=== PATIENT | male | born 1970 | race African-American/Black ===

== ENCOUNTER 2021-06-21 13:08 | Emergency (ER) | payer OTHER ==
[~2021-06-21] VITALS: Ht 172.7 cm; Wt 91.0 kg
[2021-06-21] MEDS ORDERED: NAPR-1176 MT (14:12)
[2021-06-21 14:21] VITALS: BP 134/52
== END 2021-06-21 14:59 | disposition home or self-care (01) ==
LOC: ER 13:08
DX: S40.011A Contusion of right shoulder, initial encounter (principal); W18.09XA Striking against other object with subsequent fall, initial encounter; Y93.89 Activity, other specified; Y92.89 Other specified places as the place of occurrence of the external cause; Y99.8 Other external cause status
CPT/HCPCS: 99282